=== PATIENT | male | born 1935 | race Caucasian/White ===

== ENCOUNTER → 2017-09-28 14:02 | Outpatient (CLI) | payer SELFPAY, OTHER ==
--- NOTE | 2017-09-28 14:07 | ECHOD_ITS ---
Reason For Study: AFIB/FLUTTER Procedure This was a 2D Doppler, Color Flow transthoracic echocardiogram. Contrast injection was performed. Exam performed in department. Left Ventricle Moderately dilated left ventricle. The estimated ejection fraction is 25 %. Unable to assess diastolic dysfunction due to arrhythmia. There is severe global hypokinesis of the left ventricle. Right Ventricle Normal RV size. Normal systolic function. Atria The left atrium is severely enlarged. The right atrium is moderately enlarged. Patent foramen ovale. Mitral Valve Normal mitral valve. Mild-Moderate (1-2+) eccentric mitral valve insufficiency. Tricuspid Valve Normal tricuspid valve. Mild to moderate (1-2+) tricuspid valve insufficiency. Pulmonary artery systolic pressure is 45 mmHg. Mild pulmonary hypertension. Aortic Valve Normal aortic valve. Trisinus/trileaflet aortic valve. Mild (1+) aortic valve insufficiency. Pulmonic Valve Normal pulmonic valve. Great Vessels Normal aortic root. The pulmonary artery is normal size. The inferior vena cava is dilated. Pericardium/Pleural No pericardial effusion. Medication 22 gauge I.V. with prn adaptor inserted into right arm. Diluted definity 4ml given slow IV push to enhance endocardial definition. MMode/2D Measurements & Calculations LVIDd: 6.0 cm IVSd: 1.1 cm Ao root diam: 3.2 cm LVIDs: 4.8 cm LVPWd: 1.1 cm LA dimension: 6.3 cm RVDd: 4.4 cm FS: 20.6 % LAV(MOD-bp): 163.2 ml LVAd ap4: 40.1 cm2 SV(MOD-sp4): 39.1 ml LAV(MOD-bp) Indexed: 87.8 ml/m2 EDV(MOD-sp4): 162.4 ml LAV(MOD-sp2): 139.1 ml EDV(sp4-el): 167.9 ml LAV(MOD-sp4): 161.4 ml LVAs ap4: 33.6 cm2 ESV(MOD-sp4): 123.3 ml ESV(sp4-el): 128.8 ml EF(MOD-sp4): 24.1 % EF(sp4-el): 23.3 % SV(sp4-el): 39.1 ml LA A4 area: 40.8 cm2 RA A4 area: 31.6 cm2 Time Measurements MV dec time: 0.29 sec Doppler Measurements & Calculations MV E max ely: 68.8 cm/sec Ao V2 max: 109.2 cm/sec LV V1 max: 88.6 cm/sec Ao max P.8 mmHg LV V1 max P.1 mmHg Ao V2 mean: 78.0 cm/sec LV V1 mean P.8 mmHg Ao mean P.7 mmHg LV V1 mean: 64.4 cm/sec Ao V2 VTI: 20.6 cm LV V1 VTI: 16.5 cm PA V2 max: 88.2 cm/sec TR max ely: 315.9 cm/sec TR max P.0 mmHg Interpretation Summary Moderately dilated left ventricle. The estimated ejection fraction is 25 %. Unable to assess diastolic dysfunction due to arrhythmia. There is severe global hypokinesis of the left ventricle. Mild-Moderate (1-2+) eccentric mitral valve insufficiency. Mild pulmonary hypertension. Contrast injection was performed. Ordering Physician: Jalil Tamayo Referring Physician: MARIA DEL CARMEN WATTS Performed By: Helga Hedrick RVT and Student
== END ==
PROVIDERS: Family Provider Family Medicine; PCP Family Medicine; Visit Provider Internal Medicine Cardiovascular Disease
DX: I48.91 Unspecified atrial fibrillation (principal); I48.92 Unspecified atrial flutter; R06.09 Other forms of dyspnea
CPT/HCPCS: 93306; Q9957; A4216; C8929

== ENCOUNTER 2018-12-30 09:09 | Inpatient (IN) | payer OTHER, SELFPAY ==
[2018-11-30 09:13] VITALS: BMI 23.8
[2018-12-30] VITALS (24 sets, daily range): BP systolic 103–140; BP diastolic 54–107; PULSE 68–136; RESP 18–37; TEMP 36.5–37.3; O2SAT 90–99; BMI 25.1; BMI 24.3
--- NOTE | 2018-12-30 09:25 | EKG12_ITS ---
Test Reason : SOB Blood Pressure : / mmHG Vent. Rate : 131 BPM Atrial Rate : 092 BPM P-R Int : 000 ms QRS Dur : 086 ms QT Int : 324 ms P-R-T Axes : 000 -46 096 degrees QTc Int : 478 ms Atrial fibrillation with rapid ventricular response with premature ventricular or aberrantly conducte d complexes Left anterior fascicular block Nonspecific ST and T wave abnormality Abnormal ECG Confirmed by JOSEPH YUAN, DEMARCO ([id number]), photographic editor MICHAEL NICOLAS ([id number]) on 01/02/2019 8:37:32 AM Referred By: EMMA/JOCELYN Confirmed By:DEMARCO RUIZ MD
--- NOTE | 2018-12-30 09:27 | ED.VISSUMM ---
- ER Visit Summary Date of Service: 12/30/18 Chief Complaint: Shortness of breath and irregular fast heart rate History of Present Illness: The patient is a 83 M A. fib and a decreased ejection fraction of 25%. He has been cardioverted before in the past. Currently he is on a beta-pau for his A. fib but is not on anticoagulation. The last 2 days he thinks his heart beat was accelerated and irregular again believes he may be back in A. fib. Planing of exertional shortness of breath. No chest pain or exertional chest pain. No fever or chills. No leg swelling. No calf pain. No hemoptysis. Physical Examination: Older male vital signs show a heart rate of 136 and irregular consistent with A. fib on the monitor blood pressure 108/89 and a pulse ox of 90% consistent with borderline hypoxia. H EENT exam unremarkable. Neck nontender no JVD no lymphadenopathy. Lungs clear to auscultation bilaterally. Heart irregular irregular rate about 130 consistent with A. fib. Abdomen is soft and nontender normal bowel sounds no peritoneal signs. Patient moving all 4 extremities. Neurovascularly intact. Calves are nontender without edema or cords. Neurologically is awake and alert with no focal motor deficits. Back is unremarkable. Test Results: CBC shows a white count 11.5. Hemoglobin 12. Platelets are 145,000. Chemistries unremarkable creatinine of 1 normal gap. PT/INR normal. He is on no blood thinners at this time. Troponin normal. EKG atrial fibrillation with RVR with a rate of 131. Chest x-ray shows cardiomegaly and mild congestive heart failure read both by myself and the radiologist. This is a portable one view film. Emergency Department Course and Treatment: Elderly male with A. fib RVR with shortness of breath. Will be treated with IV Cardizem. Most likely will need to be admitted Treatment Plan: Repeat exam at 10:05 AM patient is well. Currently his heart rate is about 70. He remains in A. fib which is currently well controlled after single dose of IV Cardizem. Discussed with both he and his family and he will be admitted. Disposition: Admission Impression: Recurrent A. fib with RVR Mild CHF secondary to A. fib RVR and poor ejection fraction History of cardiomyopathy with poor ejection fraction This note was generated with [employer] software. It may contain incorrect words, spelling, and punctuation that were not noted in review of the chart prior to signing ED Disposition - Plan for ED Patient: Referrals: oJse Gomes DO [Primary Care Provider] -
--- NOTE | 2018-12-30 09:30 | RAD_ITS ---
STUDY: X-RAY CHEST REASON FOR EXAM: Male, 83 years old. Chest pain and shortness of breath TECHNIQUE: Single AP portable view of the chest. COMPARISON: None. FINDINGS: There is elevation of the right hemidiaphragm. There is a pattern of increased interstitial markings mild central peribronchial thickening. There is no demonstrated pleural abnormality. There is moderate cardiac enlargement. Normal mediastinum and mago. Normal visualized pulmonary arteries. There is atherosclerotic calcification of the aortic arch with tortuosity. There are diffuse degenerative changes of the visualized thoracic spine. Normal visualized ribs, clavicles, and shoulders. There is no demonstrated abnormality of the visualized soft tissue structures of the upper abdomen. RAD/Chest 1 View (Portable) IMPRESSION: Cardiomegaly. Findings suspicious for mild central vascular congestion . Electronically Signed: Tammy Berry MD at 9:40 EDT Tel , Service support ,
[2018-12-30 09:31] LABS: Absolute Lymphocyte Count 0.98 X10^3/uL (0.83-4.51); Absolute Neutrophil Count 8.5 X10^3/uL (2.0-7.7); Basophil# 0.08 X10^3/uL; Basophil% 0.7 % (0-1); Eosinophil# 0.64 X10^3/uL; Eosinophils% 5.6 % (0-5); Hematocrit 37.5 % (40-54); Lymphocyte # 0.98 X10^3/ul (4.0); Lymphocyte % 8.5 % (19-41); Mean Corpuscular Hgb 31.7 pg (27.0-32.0); Mean Corpuscular Volume 99.2 fL (80-94); Mean Platelet Vol. 10.5 fl (6.2-12.0); Monocyte# 1.26 X10^3/uL; Monocyte% 10.9 % (0-10); NRBC Flagged by Analyzer 0 % (0-5); Neutrophil # 8.52 X10^3/uL (2.7-7.7); Neutrophil % 73.9 % (47-70); POSITIVE MORPHOLOGY YES; Platelet Count 145 K/mm3 (150-450); RBC Distribution Width CV 20.8 % (11.6-14.6); RBC Distribution Width SD 74.5 fl (35.1-43.9); Red Blood Count 3.78 M/mm3 (4.6-6.2); White Blood Count 11.5 K/mm3 (4.4-11.0)
[2018-12-30 09:32] LABS: Differential Indicated SCAN CRITERIA MET
[2018-12-30] MEDS: dilTIAZem 25 MG/5 ML Vial IV BOLUS (09:40)
[2018-12-30 09:43] LABS: International Normalized Ratio 1.1; Prothrombin Time (Protime)PT. 14.2 SECONDS (11.7-14.9)
[2018-12-30 09:49] LABS: Anion Gap 4 (5-15); BUN 28 mg/dL (7-18); BUN/Creat Ratio 27.2 RATIO (10-20); Calcium,Total 9.1 mg/dL (8.5-10.1); Chloride 106 mmol/L (98-107); Creatinine, Serum 1.03 mg/dL (0.70-1.30); EST Glomerular Filtration Rate 73 mL/min (>60); Est Glom Filt Rate - Afr Amer 89 mL/min (>60); Estimated Creatinine Clearance 52.57 ml/min; Glucose 102 mg/dL (74-106); Potassium 4.8 mmol/L (3.5-5.1); Sodium Level 139 mmol/L (136-145)
[2018-12-30 09:52] LABS: Anisocytosis 2+; Differential Comment SCANNED; Macrocytosis 1+; Microcytosis 1+
--- NOTE | 2018-12-30 10:09 | HP.PCM_ITS ---
History of Present Illness Date of Admission: 12/30/18 Chief Complaint: shortness of breath The patient is a 83 year old M with a past medical history as listed in which includes atrial fibrillation. He was admitted through the ED on 12/30/2018 with a complaint of shortness of breath. Shortness of breath started a few days prior to admission and was associated with orthopnea and PND. He denied any palpitations or lightheadedness but admitted to some dizziness. He denied any chest pain and denied any swelling in his lower extremities and had no assisted fever chills or cough. Review of systems is otherwise negative. Symptoms persisted so he decided to come to the ED today. On arrival in the ED ED, EKG showed heart rate of 136 and Afib, and blood pressure was 108/89 and pulse rate was 90% on room air. [] CBC showed hemoglobin of 12 white cell count of 11.5. Chemistry was unremarkable and initial troponin was negative. Chest x-ray showed cardiomegaly with findings suspicious for mild central vascular congestion. BNP was not checked. Patient is been admitted to be managed for A. fib with RVR. Past Medical History Past Medical History (Chronic Problems): Chronic Problems (Last Reviewed 11/30/18 @ 10:20 by Jalil Tamayo MD) Dyspnea (Chronic) Persistent atrial fibrillation (Chronic) Non-ischemic cardiomyopathy (Chronic) Secondary pulmonary arterial hypertension (Chronic) Nonrheumatic mitral (valve) insufficiency (Chronic) Medical History: Medical History (Last Reviewed 11/30/18 @ 10:20 by Jalil Tamayo MD) Persistent atrial fibrillation (Chronic) I48.1 Non-ischemic cardiomyopathy (Chronic) I42.8 GI bleed Onset Date: ~2015 K92.2 Osteoarthritis M19.90 Allergies sacubitril [From Entresto] Allergy (Verified 12/30/18 09:10) Itching valsartan [From Entresto] Allergy (Verified 12/30/18 09:10) Itching Home Medications: Ambulatory Orders Medication Instructions Recorded Aspirin 325 mg PO DAILY@0800 12/30/18 Carvedilol [Coreg] 6.25 mg PO BID 12/30/18 Ferrous Sulfate 325 mg PO DAILY 12/30/18 Furosemide [Lasix] 40 mg PO DAILY 12/30/18 Sertraline HCl [Zoloft] 50 mg PO DAILY 12/30/18 Surgical History: Surgical History (Last Reviewed 11/30/18 @ 10:20 by Jalil Tamayo MD) History of basal cell carcinoma excision Z98.890, Z85.828 History of cardioversion Z98.890 History of knee replacement Z96.659 History of right and left heart catheterization Onset Date: 09/08/15 Z98.890 Lives: With Family Smoking Status: Never smoker Alcohol: None Drugs: None - *Family History Maternal History Items: No pertinent history Paternal History Items: No pertinent history Review of Systems Constitutional: Reports: Anorexia. Denies: Malaise, Weakness Eyes: Denies: Blurred vision HEENT: Denies: Head Aches, Sinus Congestion, Sinus Drainage Cardiovascular: Reports: Orthopnea, Paroxysmal Noc. Dyspnea. Denies: Chest Pain, Chest Pressure, Chest Tightness, Edema, Heaviness, Light Headedness, Palpitations, Syncope Respiratory: Reports: Shortness of Breath, Shortness of breath at rest. Denies: Cough, Shortness of breath upon exertion, Sputum production, Wheezing Gastrointestinal: Denies: Abdominal Pain, Nausea, Vomiting Genitourinary: Denies: Dysuria Musculoskeletal: Denies: Joint Pain, Joint Tenderness Skin: Denies: Rash, Wounds Neurological: Denies: Numbness, Tingling, Focal weakness Psychiatric: Denies: Anxiety, Depression, Homicidal Ideations, Suicidal Ideations Hematologic/ Lymphatic: Denies: Easy Bruising, Easy Bleeding VTE Information - Inpt Only VTE Present on Admission: No VTE Pharm Prophylaxis ordered?: Yes - Physical Exam General: Alert, Oriented x3, Cooperative, No apparent distress HEENT: Atraumatic, PERRLA, EOMI, Normocephalic Oral: Dry Mucosa Neck: Supple, No JVD, Negative Carotid Bruits Lungs: - - decreased breath sounds bibasally, no wheezes; bibasilar crackles. on 2L fo oxygen Cardiovascular: Normal S1, Normal S2, Irregular Rate - and irregular rhythm, Murmur - grade 2-3 systolic murmur loudest at mitral valve area, - Abdomen: Bowel Sounds Present, Soft, Non Tender Extremities: No clubbing, No cyanosis, No edema, Capillary Refill Less than 3 Seconds Skin: No rashes, No breakdown Musculoskeletal: No Tenderness to Palpation of Joints or Extremities Lymphatic: No Cervical, Supraclavicular, or Inguinal Adenopathy Neurological: Cranial nerves II-XII grossly intact, Neuro grossly intact, Motor Exam 5/5 strength throughout Psych/Mental Status: Normal Affect, Appropriate, Alert and oriented to time, place, person, mood and affect Vital Signs Temp Pulse Resp BP Pulse Ox 98.2 F 136 H 20 H 108/89 H 96 12/30/18 09:11 12/30/18 09:11 12/30/18 09:11 12/30/18 09:11 12/30/18 09:27 Oxygen Flow Rate (L/min) 2 Oxygen Delivery Method Nasal Cannula Weight: 165 lb 5.547 oz Body Mass Index (BMI) 25.1 Laboratory Tests Past 24 Hrs 12/30/18 12/30/18 12/30/18 09:21 09:21 09:21 WBC 11.5 H RBC 3.78 L Hgb 12.0 L Hct 37.5 L MCV 99.2 H MCH 31.7 MCHC 32.0 RDW Std Deviation 74.5 H RDW Coeff of Jack 20.8 H Plt Count 145 L MPV 10.5 Immature Gran % (Auto) 0.400 Neut % (Auto) 73.9 H Lymph % (Auto) 8.5 L [place] % (Auto) 10.9 H Eos % (Auto) 5.6 H Baso % (Auto) 0.7 Absolute Neuts (auto) 8.5 H Absolute Lymphs (auto) 0.98 Nucleated RBC % 0 Differential Comment SCANNED Anisocytosis 2+ Microcytosis 1+ Macrocytosis 1+ PT 14.2 INR 1.1 Sodium 139 Potassium 4.8 Chloride 106 Carbon Dioxide 29.0 Anion Gap 4 L BUN 28 H Creatinine 1.03 Estim Creat Clear Calc 52.57 Est GFR (MDRD) Af Amer 89 Est GFR (MDRD) Non-Af 73 BUN/Creatinine Ratio 27.2 H Glucose 102 Calcium 9.1 Troponin I < 0.015 Diagnostic Data Chest X-Ray 12/30/18 09:30 IMPRESSION: Cardiomegaly. Findings suspicious for mild central vascular congestion . Electronically Signed: Tammy Berry MD at 9:40 EDT Tel , Service support , Assessment/Plan All Active Problems (Last Reviewed 11/30/18 @ 10:20 by Jalil Tamayo MD) Dyspnea on exertion (Resolved) 83-year-old male admitted with complaint of shortness of breath. 1. Afib with RVR * admit to PCU with telemetry * EKG showed Afib with RVR with HR in 130s * initial troponin is negative; will cycle * received a bolus of cardizem in the ED, adn HR is now down in the 80s. * CHADVASC score is ~ 2, therefore he needs anticoagulation * patient on aspirin; from cardiology visit note, pateint refused coumadin. Hospitalist discussed this with patient and his family. His son stated that they were not in favor of anticoagulants as the preferred natural ways of treating ailments such as fruits and vegetables. Hospitalist informed son and family that patient was already on a lot of medications and so this was counted to them preferring only natural medications. They thought he may have had a history of GI bleed but they were not sure. It is documented in previous history that patient does have a history of GI bleed. Family will think about starting anticoagulants and at hospitalist note. * For now, continue on aspirin and carvedilol. Consider adding Cardizem drip if heart rate remains poorly controlled. * consult cardiology * 2. Acute on chronic HFrEF * CXR showed evidence of pulmonary vascular congestion. * BNP is 974 * last 2D echo (: moderately dilated LV, with EF of 25%, nable to assess diastolic function. Severe global hypokinesia of LV. severely enlarged LA, and PA pressure of 45mmhg. mild to moderate mitral and tricuspid valve insufficiency * hold oral lasix and diurese with IV lasix 40mg bid. * fluid restriction to 1500cc daily; monitor intake and output * order 2D echo * 3.Chronic Anemia: . Hb is 12. On iron supplementation. Will monitor DVT prophylaxis: lovenox Code status: full code * Patient and family counseled extensively about different types of CODE STATUS including full code, DNR CCA and DNR CCA. Patient elects to be full code. Total [id number] time 16 minutes. Code Visit Inpatient E&M: 65543 Init Hosp L3 Procedures: 90503 Advncd Care Plan 30 Min
[2018-12-30] MEDS: 0.9% NaCl Peripheral Flush Adult/Peds IV (12:21)
[2018-12-30] MEDS: Furosemide 40 MG/4 ML Vial IV ×2 (12:21→17:26)
[2018-12-30 12:22] LABS: Magnesium 1.9 mg/dL (1.6-2.6)
--- NOTE | 2018-12-30 13:27 | NURSING ---
spoke with dr deshpande and no need for nutritional supplement d/c fluid restriction
--- NOTE | 2018-12-30 15:14 | NURSING ---
This RN taking over care at this time
--- NOTE | 2018-12-30 17:23 | PCM.CONS.C ---
Problem List (1) Persistent atrial fibrillation Status: Chronic Reason for Consult Date of Consultation: 12/30/18 History of Present Illness: The patient is a 83 year old M with a past medical history as listed in which includes atrial fibrillation. He was admitted through the ED on 12/30/2018 with a complaint of shortness of breath. Shortness of breath started a few days prior to admission and was associated with orthopnea and PND. He denied any palpitations or lightheadedness but admitted to some dizziness. He denied any chest pain and denied any swelling in his lower extremities and had no assisted fever chills or cough. Review of systems is otherwise negative. Symptoms persisted so he decided to come to the ED today. On arrival in the ED ED, EKG showed heart rate of 136 and Afib, and blood pressure was 108/89 and pulse rate was 90% on room air. [] CBC showed hemoglobin of 12 white cell count of 11.5. Chemistry was unremarkable and initial troponin was negative. Chest x-ray showed cardiomegaly with findings suspicious for mild central vascular congestion. BNP was not checked. Patient is been admitted to be managed for A. fib with RVR. She was started on a Cardizem drip and this has controlled his heart rate. He does have history of severe LV dysfunction. Patient had refused Coumadin in the past. Review of systems: All systems reviewed. All else is negative except in the HPI. [] Past Medical History Allergies/Adverse Reactions: Allergies sacubitril [From Entresto] Allergy (Verified 12/30/18 09:10) Itching valsartan [From Entresto] Allergy (Verified 12/30/18 09:10) Itching Home Medications: Ambulatory Orders Medication Instructions Recorded Aspirin 325 mg PO DAILY@0800 12/30/18 Carvedilol [Coreg] 6.25 mg PO BID 12/30/18 Ferrous Sulfate 325 mg PO DAILY 12/30/18 Furosemide [Lasix] 40 mg PO DAILY 12/30/18 Sertraline HCl [Zoloft] 50 mg PO DAILY 12/30/18 Past Medical History (Chronic Problems): Chronic Problems (Last Reviewed 11/30/18 @ 10:20 by Jalil Tamayo MD) Dyspnea (Chronic) Persistent atrial fibrillation (Chronic) Non-ischemic cardiomyopathy (Chronic) Secondary pulmonary arterial hypertension (Chronic) Nonrheumatic mitral (valve) insufficiency (Chronic) - *Family History Maternal History Items: No pertinent history Paternal History Items: No pertinent history Lives: With Family Smoking Status: Never smoker Alcohol: None Drugs: None Objective: Vital Signs Temp Pulse Resp BP Pulse Ox 97.8 F 87 29 H 105/77 95 12/30/18 14:00 12/30/18 16:00 12/30/18 16:00 12/30/18 16:00 12/30/18 16:00 Oxygen Flow Rate (L/min) 2 Oxygen Delivery Method Nasal Cannula Weight: 159 lb 13.362 oz Body Mass Index (BMI) 24.3 Intake and Output for Last 24 Hours 12/28/18 12/29/18 12/30/18 23:59 23:59 23:59 Intake Total 231.00 / 231.00 Balance 231.00 / 231.00 General: Awake, Alert, Oriented x 3 Oral: Moist Mucosa Neck: Supple Lungs: Clear to auscultation Cardiovascular: Irregular Rhythm Abdomen: Soft Extremities: No edema Skin: No Rashes Psych/Mental Status: Appropriate 12/30/18 09:21: WBC 11.5 H, RBC 3.78 L, Hgb 12.0 L, Hct 37.5 L, MCV 99.2 H, MCH 31.7, MCHC 32.0, Plt Count 145 L, MPV 10.5, Immature Gran % (Auto) 0.400, Neut % (Auto) 73.9 H, Lymph % (Auto) 8.5 L, [place] % (Auto) 10.9 H, Eos % (Auto) 5.6 H, Baso % (Auto) 0.7, Absolute Neuts (auto) 8.5 H, Nucleated RBC % 0 12/30/18 09:21: Sodium 139, Potassium 4.8, Chloride 106, Carbon Dioxide 29.0, Anion Gap 4 L, BUN 28 H, Creatinine 1.03, Est GFR (MDRD) Af Amer 89, Est GFR (MDRD) Non-Af 73, BUN/Creatinine Ratio 27.2 H, Glucose 102, Calcium 9.1, Troponin I < 0.015 12/30/18 09:21: PT 14.2, INR 1.1 12/30/18 09:21: Magnesium 1.9 12/30/18 09:21: B-Natriuretic Peptide 974.0 H 12/30/18 13:00: Troponin I < 0.015 12/30/18 15:20: Troponin I < 0.015 Rhythm: EKG: ECHO: Stress Test: Cardiac Cath: PCI: CT Surgery: Holter monitor: EPS: PPM: CXR: Chest CT Scan: Assessment/Plan 1. Atrial fibrillation: I will switch from carvedilol to Toprol to see if this will control his heart rate better and we will try to wean off the Cardizem. Once we know the dose of Toprol he will be needing on a daily basis then we can switch to Toprol-XL. 2. LV dysfunction: Patient has history of an EF of 25% in September 2017. It will be reasonable to repeat an echo.
[2018-12-30] MEDS: Metoprolol Tartrate 50 MG Tablet PO (21:42)
[2018-12-31] VITALS (22 sets, daily range): BP systolic 96–126; BP diastolic 54–99; PULSE 68–92; RESP 16–26; TEMP 36.3–37.1; O2SAT 94–98
--- NOTE | 2018-12-31 05:55 | ECHOD_ITS ---
Reason For Study: AFIB/FLUTTER Procedure This was a 2D Doppler, Color Flow transthoracic echocardiogram. Exam performed portable in patient room. Left Ventricle Normal LV size. The estimated ejection fraction is 50 %. Diastolic function is indeterminate. No regional wall motion abnormalities noted. Right Ventricle Mildly dilated right ventricle. Normal systolic function. Atria The left atrium is severely enlarged. The right atrium is severely enlarged. No doppler evidence for ASD. Mitral Valve There is no mitral valve stenosis. Mild-Moderate (1-2+) mitral valve insufficiency. Tricuspid Valve There is no tricuspid stenosis. Mild to moderate (1-2+) tricuspid valve insufficiency. Pulmonary artery systolic pressure is 80 mmHg. Severe pulmonary hypertension. Aortic Valve Trisinus/trileaflet aortic valve. There is no aortic stenosis. No aortic valve insufficiency. Pulmonic Valve There is no pulmonic valvular stenosis. No pulmonic valve insufficiency. Great Vessels Normal aortic root. The inferior vena cava is dilated. Pericardium/Pleural No pericardial effusion. MMode/2D Measurements & Calculations LVIDd: 5.1 cm IVSd: 1.1 cm Ao root diam: 3.2 cm LVIDs: 3.6 cm LVPWd: 1.1 cm RVDd: 5.1 cm FS: 29.1 % LAV(MOD-bp): 156.9 ml LA A4 area: 40.9 cm2 LA dimension(2D): 4.6 cm LAV(MOD-bp) Indexed: 85.8 ml/m2 LAV(MOD-sp2): 143.9 ml LAV(MOD-sp4): 167.7 ml RA A4 area: 38.3 cm2 Doppler Measurements & Calculations MV E max ely: 109.3 cm/sec Ao V2 max: 122.5 cm/sec LV V1 max: 67.7 cm/sec Ao max P.0 mmHg LV V1 max P.8 mmHg PA V2 max: 86.1 cm/sec TR max ely: 412.9 cm/sec TR max P.2 mmHg Interpretation Summary The estimated ejection fraction is 50 %. Diastolic function is indeterminate. Mild-Moderate (1-2+) mitral valve insufficiency. Mild to moderate (1-2+) tricuspid valve insufficiency. Pulmonary artery systolic pressure is 80 mmHg. Severe pulmonary hypertension. The inferior vena cava is dilated Ordering Physician: Josefa Arrieta Referring Physician: Jose Gomes Performed By: Tanvi Willis, LIBRADO, RVT
[2018-12-31 06:16] LABS: Absolute Lymphocyte Count 1.09 X10^3/uL (0.83-4.51); Absolute Neutrophil Count 7.5 X10^3/uL (2.0-7.7); Basophil# 0.04 X10^3/uL; Basophil% 0.4 % (0-1); Eosinophil# 0.57 X10^3/uL; Eosinophils% 5.5 % (0-5); Hematocrit 35.6 % (40-54); Hemoglobin 11.7 g/dL (13.0-16.5); Lymphocyte # 1.09 X10^3/ul (4.0); Lymphocyte % 10.5 % (19-41); Mean Corp Hgb Conc 32.9 g/dL (32-36); Mean Corpuscular Hgb 32.1 pg (27.0-32.0); Mean Corpuscular Volume 97.5 fL (80-94); Mean Platelet Vol. 10.1 fl (6.2-12.0); Monocyte# 1.15 X10^3/uL; Monocyte% 11.1 % (0-10); NRBC Flagged by Analyzer 0 % (0-5); Neutrophil # 7.49 X10^3/uL (2.7-7.7); Neutrophil % 71.9 % (47-70); POSITIVE MORPHOLOGY YES; Platelet Count 141 K/mm3 (150-450); RBC Distribution Width CV 20.4 % (11.6-14.6); RBC Distribution Width SD 72.5 fl (35.1-43.9); Red Blood Count 3.65 M/mm3 (4.6-6.2); White Blood Count 10.4 K/mm3 (4.4-11.0)
[2018-12-31] MEDS: 0.9% NaCl Peripheral Flush Adult/Peds IV ×3 (06:36→17:19)
[2018-12-31 06:42] LABS: Anion Gap 4 (5-15); BUN 30 mg/dL (7-18); BUN/Creat Ratio 26.8 RATIO (10-20); Calcium,Total 8.7 mg/dL (8.5-10.1); Chloride 102 mmol/L (98-107); Creatinine, Serum 1.12 mg/dL (0.70-1.30); EST Glomerular Filtration Rate 67 mL/min (>60); Est Glom Filt Rate - Afr Amer 80 mL/min (>60); Estimated Creatinine Clearance 48.35 ml/min; Glucose 93 mg/dL (74-106); Potassium 4.5 mmol/L (3.5-5.1); Sodium Level 139 mmol/L (136-145)
[2018-12-31 06:44] LABS: Differential Indicated SCAN CRITERIA MET
[2018-12-31 06:48] LABS: Anisocytosis 3+; Differential Comment SCANNED
--- NOTE | 2018-12-31 08:06 | PN_ITS ---
Subjective: Chief complaint: Follow-up after admission for A. hebert with RVR and acute on chronic diastolic CHF. Patient seen and examined. No acute events overnight. Patient reports that he is feeling better, shortness of breath improved. He is ambulating to the bathroom without significant worsening of his shortness of breath. Denied chest pain, palpitation, syncope or presyncope. He did mention that he gets slightly dizzy when he stands up. He remained on IV Cardizem drip. Heart rate is controlled, down to 70s, blood pressure stable, pulse ox is 95% on 2 L. - Physical Exam General: Alert, Oriented x3, Cooperative, No apparent distress HEENT: Atraumatic, PERRLA, EOMI, Normocephalic Oral: Moist Mucosa, No Gingival or Mucosal Lesions/ Ulcerations Neck: Supple, No JVD, Negative Carotid Bruits, Trachea Midline, Thyroid Normal Size and Texture Lungs: Clear to auscultation, No wheeze, No rales, Diminished, Rhonchi Cardiovascular: Normal S1, Normal S2, No murmurs, Irregular Rate Abdomen: Bowel Sounds Present, Soft, Non Tender, Non-Distended, No Hepato- splenomegaly Extremities: No clubbing, No cyanosis, No edema Skin: No rashes, No breakdown Lymphatic: No Cervical, Supraclavicular, or Inguinal Adenopathy Neurological: Cranial nerves II-XII grossly intact, Motor Exam 5/5 strength throughout Psych/Mental Status: Normal Affect, Appropriate, Alert and oriented to time, place, person, mood and affect Vital Signs Temp Pulse Resp BP Pulse Ox 98.4 F 70 20 H 106/66 95 12/31/18 04:00 12/31/18 07:08 12/31/18 06:00 12/31/18 06:00 12/31/18 06:00 Oxygen Flow Rate (L/min) 2 Oxygen Delivery Method Nasal Cannula Weight: 154 lb 12.232 oz Body Mass Index (BMI) 24.3 Intake and Output for Last 24 Hours 12/29/18 12/30/18 12/31/18 23:59 23:59 23:59 Intake Total 866.00 / 1111.00 257.5 / 257.5 Output Total 1150 / 2850 1700 / 1700 Balance -284.00 / -1739.00 -1442.5 / -1442.5 Laboratory Tests Past 24 Hrs 10/13/19 10/13/19 10/13/19 09:21 09:21 09:21 WBC 11.5 H RBC 3.78 L Hgb 12.0 L Hct 37.5 L MCV 99.2 H MCH 31.7 MCHC 32.0 RDW Std Deviation 74.5 H RDW Coeff of Jack 20.8 H Plt Count 145 L MPV 10.5 Immature Gran % (Auto) 0.400 Neut % (Auto) 73.9 H Lymph % (Auto) 8.5 L Mcintosh % (Auto) 10.9 H Eos % (Auto) 5.6 H Baso % (Auto) 0.7 Absolute Neuts (auto) 8.5 H Absolute Lymphs (auto) 0.98 Nucleated RBC % 0 Differential Comment SCANNED Anisocytosis 2+ Microcytosis 1+ Macrocytosis 1+ PT 14.2 INR 1.1 Sodium 139 Potassium 4.8 Chloride 106 Carbon Dioxide 29.0 Anion Gap 4 L BUN 28 H Creatinine 1.03 Estim Creat Clear Calc 52.57 Est GFR (MDRD) Af Amer 89 Est GFR (MDRD) Non-Af 73 BUN/Creatinine Ratio 27.2 H Glucose 102 Calcium 9.1 Magnesium Troponin I < 0.015 B-Natriuretic Peptide 12/30/18 12/30/18 12/30/18 09:21 09:21 13:00 WBC RBC Hgb Hct MCV MCH MCHC RDW Std Deviation RDW Coeff of Jack Plt Count MPV Immature Gran % (Auto) Neut % (Auto) Lymph % (Auto) Mcintosh % (Auto) Eos % (Auto) Baso % (Auto) Absolute Neuts (auto) Absolute Lymphs (auto) Nucleated RBC % Differential Comment Anisocytosis Microcytosis Macrocytosis PT INR Sodium Potassium Chloride Carbon Dioxide Anion Gap BUN Creatinine Estim Creat Clear Calc Est GFR (MDRD) Af Amer Est GFR (MDRD) Non-Af BUN/Creatinine Ratio Glucose Calcium Magnesium 1.9 Troponin I < 0.015 B-Natriuretic Peptide 974.0 H 12/30/18 12/31/18 12/31/18 15:20 05:47 05:47 WBC 10.4 RBC 3.65 L Hgb 11.7 L Hct 35.6 L MCV 97.5 H MCH 32.1 H MCHC 32.9 RDW Std Deviation 72.5 H RDW Coeff of Jack 20.4 H Plt Count 141 L MPV 10.1 Immature Gran % (Auto) 0.600 Neut % (Auto) 71.9 H Lymph % (Auto) 10.5 L Mcintosh % (Auto) 11.1 H Eos % (Auto) 5.5 H Baso % (Auto) 0.4 Absolute Neuts (auto) 7.5 Absolute Lymphs (auto) 1.09 Nucleated RBC % 0 Differential Comment SCANNED Anisocytosis 3+ Microcytosis Macrocytosis PT INR Sodium 139 Potassium 4.5 Chloride 102 Carbon Dioxide 33.0 H Anion Gap 4 L BUN 30 H Creatinine 1.12 Estim Creat Clear Calc 48.35 Est GFR (MDRD) Af Amer 80 Est GFR (MDRD) Non-Af 67 BUN/Creatinine Ratio 26.8 H Glucose 93 Calcium 8.7 Magnesium Troponin I < 0.015 B-Natriuretic Peptide Medical Necessity - Tobacco Use Smoking Status: Never smoker Assessment/Plan This is an 83 years old male patient presented to the emergency room because of shortness of breath and irregular heart rate, found to have A. fib with RVR as well as acute on chronic diastolic CHF. #1 A. fib with RVR: On IV Cardizem drip as well as oral metoprolol. Heart rate is down to 70s to 80s, blood pressure stable. Patient symptoms improved. Patient is a candidate for anticoagulation but reportedly, patient's family is concerned to start anticoagulation because of history of GI bleed. Cardiology on the case. Serum electrolytes including potassium and magnesium are normal. Troponin was negative. Plan to continue same treatment, 2D echocardiogram today. #2 acute on chronic diastolic CHF: On IV Lasix, on metoprolol. Symptoms are improving, volume status is improving as well. Plan for 2D echocardiogram today as above. #3 chronic anemia: Stable, continue iron supplement. No evidence of active bleeding. #4 DVT prophylaxis: Subcu Lovenox. This note was generated with [employer] dictation software. It may contain incorrect words, spelling, and punctuation that were not noted in checking the note before signing. Code Visit Inpatient E&M: 86809 Subs Hosp L2
[2018-12-31] MEDS: Aspirin 325 MG Tablet PO (10:14)
[2018-12-31] MEDS: Metoprolol Tartrate 50 MG Tablet PO ×2 (10:14→21:07)
[2018-12-31] MEDS: Sertraline 50 MG Tablet PO (10:15)
[2018-12-31] MEDS: Furosemide 40 MG/4 ML Vial IV ×2 (10:15→17:19)
[2018-12-31] MEDS: Ferrous Sulfate 325 MG Tablet PO (10:15)
--- NOTE | 2018-12-31 11:02 | CASEMGMT ---
This RN CM to room to complete CM assessment and ECHO is at bedside at this time. CM will attempt again later. SStaten RN CM
--- NOTE | 2018-12-31 12:45 | CASEMGMT ---
CONNIE SKAGGS assessment: Face to Face with patient for initial transition planning/care coordination assessment. CONNIE SKAGGS introduced self and role at [facility], pt voices understanding and consents to assessment at this time. Pt is lying in bed in no distress at this time. Pt is A/Ox4 at this time and answers all questions appropriately at this time. Pt with family member at bedside. Care providers, pharmacy, and demographics verified at this time. Per physician, pt/family do not want anti-coagulation d/t pt hx of GI bleeding. PCP: Eliseo Specialists: Roni, cardio Preferred Pharmacy: [facility] Insurance: [employer] Prescription Benefit: Self Living Will/HPOA: Pt is unsure if he has a LW/HPOA but states that he did complete paperwork with a public finance specialist and his (now ) years ago but unsure all that they did. LNOK: Mina Torres, son; Estelle Torres, son; Catalino Torres, son Living Arrangements: Pt states lives with son, Mina, and his family on main level of home and states no concerns at home at this time. Pt states is independent with ADL's. Transportation: Pt states no transportation concerns at this time. Pt states has a 3 wheel motorized bike that he rides the [employer] to [place] to get groceries. DME/HHC: Pt states has a cane but does not currently use. Pt states no need for any further DME at this time. Pt states no hx of HHC or SNF in the past. Pt states no concerns with going home at time of discharge. Pt states is retired. Pt states does not smoke or drink ETOH. Pt states no further concerns/needs at this time. CM to follow for any further discharge planning/needs. Advised pt to ask for CM if any further questions/concerns/needs arise, voices understanding. Pt Goal: Home Plan: Home SStaten CONNIE SKAGGS
--- NOTE | 2018-12-31 17:53 | PN.CARD_ITS ---
Subjectve: Patient denies any cardiac complaints. His heart rate is better controlled on current regimen. IV Cardizem was discontinued at around 2:30 AM this morning. Objective: Vital Signs Temp Pulse Resp BP Pulse Ox 98.7 F 77 16 115/74 95 12/31/18 14:51 12/31/18 16:14 12/31/18 14:51 12/31/18 14:51 12/31/18 14:51 Oxygen Flow Rate (L/min) 2 Oxygen Delivery Method Nasal Cannula Weight: 154 lb 12.232 oz Body Mass Index (BMI) 24.3 Intake and Output for Last 24 Hours 12/29/18 12/30/18 12/31/18 23:59 23:59 23:59 Intake Total 866.00 / 1111.00 987.5 / 987.5 Output Total 1150 / 2850 2200 / 2200 Balance -284.00 / -1739.00 -1212.5 / -1212.5 General: Awake, Alert, Oriented x 3 HEENT: Atraumatic Oral: Moist Mucosa Neck: Supple Lungs: Clear to auscultation Cardiovascular: Irregular Rhythm Abdomen: Soft Extremities: No edema 12/31/18 05:47: WBC 10.4, RBC 3.65 L, Hgb 11.7 L, Hct 35.6 L, MCV 97.5 H, MCH 32.1 H, MCHC 32.9, Plt Count 141 L, MPV 10.1, Immature Gran % (Auto) 0.600, Neut % (Auto) 71.9 H, Lymph % (Auto) 10.5 L, Sheridan % (Auto) 11.1 H, Eos % (Auto) 5.5 H , Baso % (Auto) 0.4, Absolute Neuts (auto) 7.5, Nucleated RBC % 0 12/31/18 05:47: Sodium 139, Potassium 4.5, Chloride 102, Carbon Dioxide 33.0 H, Anion Gap 4 L, BUN 30 H, Creatinine 1.12, Est GFR (MDRD) Af Amer 80, Est GFR (MDRD) Non-Af 67, BUN/Creatinine Ratio 26.8 H, Glucose 93, Calcium 8.7 Rhythm: EKG: ECHO: Stress Test: Cardiac Cath: PCI: CT Surgery: Holter monitor: EPS: PPM: CXR: Chest CT Scan: Medical Necessity - Tobacco Use Smoking Status: Never smoker Assessment/Plan 1. Atrial fibrillation: Metoprolol ended up controlling his heart rate better. Patient can be discharged home on Toprol-XL 100 mg p.o. daily. He can follow-up with Dr. Tamayo as an outpatient. He has refused Coumadin in the past. 2. LV dysfunction: Patient has history of an EF of 25% in September 2017. His current echo reveals an EF of around 50%.
[2019-01-01] VITALS (8 sets, daily range): BP systolic 119–122; BP diastolic 86–87; PULSE 84–91; RESP 16–20; TEMP 36.6–36.8; O2SAT 86–97
[2019-01-01 07:07] LABS: Anion Gap 4 (5-15); BUN 42 mg/dL (7-18); BUN/Creat Ratio 33.3 RATIO (10-20); Calcium,Total 8.9 mg/dL (8.5-10.1); Chloride 103 mmol/L (98-107); Creatinine, Serum 1.26 mg/dL (0.70-1.30); EST Glomerular Filtration Rate 58 mL/min (>60); Est Glom Filt Rate - Afr Amer 70 mL/min (>60); Estimated Creatinine Clearance 42.98 ml/min; Glucose 81 mg/dL (74-106); Potassium 3.9 mmol/L (3.5-5.1); Sodium Level 140 mmol/L (136-145)
[2019-01-01] MEDS: Metoprolol(XL)Succ 100 MG Tablet PO (08:38)
[2019-01-01] MEDS: Ferrous Sulfate 325 MG Tablet PO (08:38)
[2019-01-01] MEDS: Sertraline 50 MG Tablet PO (08:38)
[2019-01-01] MEDS: Aspirin 325 MG Tablet PO (08:38)
--- NOTE | 2019-01-01 10:02 | CASEMGMT ---
Addendum entered by Nannette Sena 01/01/19 11:18: Pt states no concerns with monthly delgado of home oxygen at this time and states that he has a checking account that they can use through [employer] as payment method. Pt/son voice no further questions/concerns/needs at this time. Anabell ROSALES CM Original Note: Per Isidoro RN, pt does qualify for home oxygen at this time. This RN CM to room to speak with pt regarding same. Pt is [place] and states does have a generator at home but it's only in the shop. Pt states no preference for DME company at this time after verbal list provided. Call to [employer] and they state they do not have liquid oxygen but they can send pt home with the large oxygen tanks and then refill as needed. Per Laura, pt's out of pocket cost per month would be $158.71. Anabell ROSALES CM
--- NOTE | 2019-01-01 10:43 | PCM.DC ---
You will use the following diet at home:: Cardiac, Fluid restricted (specify 2000 mls, 1500 mls) - 1500 cc daily. Your food should be the consistency of: Regular Discharge Activity: Return to Normal Activity Weight Bearing Status: Weight bearing as tolerated Call your doctor if you observe: Fever of 101 or Higher, Shortness of breath, Dizziness, Fainting spells, Chest pain, Increased palpitations (irregular heartbeat), Uncontrolled pain Instructions: Using Oxygen at Home Allergies/Adverse Reactions: Allergies sacubitril [From Entresto] Allergy (Verified 12/30/18 09:10) Itching valsartan [From Entresto] Allergy (Verified 12/30/18 09:10) Itching Medications to take at Discharge Aspirin 325 mg PO DAILY@0800 12/30/18 Ferrous Sulfate 325 mg PO DAILY 12/30/18 Furosemide [Lasix] 40 mg PO DAILY 12/30/18 Sertraline HCl [Zoloft] 50 mg PO DAILY 12/30/18 Metoprolol(XL)Succ [Toprol Xl (Beta Anibal)] 100 mg PO DAILY #30 tab 01/01/19 The following prescriptions were given: Metoprolol(XL)Succ [Toprol Xl (Beta Anibal)] 100 mg PO DAILY #30 tab Transmission Status: Pending to [facility]/pharmacy #[id number] Primary Care Physician: Jose Gomes DO [Primary Care Provider] - Please follow up with your Primary Care Physician in: 1 week. Test Results: Test results from this visit will be discussed in further detail at your follow-up appointment, if applicable. Please Follow Up With: Jose Gomes DO Please Follow Up With: Jalil Tamayo MD When: 2 weeks.
--- NOTE | 2019-01-01 12:11 | DS.PCM_ITS ---
Discharge Date and Diagnosis Date of Admission: 12/30/18 Date of Discharge: 01/01/19 - Primary Discharge Diagnosis #1 A. fib with RVR. #2 acute on chronic diastolic CHF. #3 acute hypoxic respiratory failure, requiring home oxygen. - Secondary Discharge Diagnosis Chronic Problems (Last Reviewed 11/30/18 @ 10:20 by Jalil Tamayo MD) Persistent atrial fibrillation (Chronic) Non-ischemic cardiomyopathy (Chronic) Secondary pulmonary arterial hypertension (Chronic) Nonrheumatic mitral (valve) insufficiency (Chronic) Hospital Course and Treatment Imaging Results: Clinical Impression(s) from Imaging Studies Chest X-Ray 12/30/18 09:30 IMPRESSION: Cardiomegaly. Findings suspicious for mild central vascular congestion . Electronically Signed: Tammy Berry MD at 9:40 EDT Tel , Service support , Dr. Oscar, cardiology. Operations: None Procedures: 2-D Echocardiogram, EKG Summary of Care Provided: Patient seen and examined on today's discharge and appeared to be stable to be discharged home. Heart rate remained under control, has been in the 80s, blood pressure stable. Patient denies any shortness of breath but walking pulse oximeter revealed pulse ox of 86% with ambulation on room air and patient did qualify for home oxygen. According to the patient, he used to use oxygen at home years ago. Other vital signs are stable. The patient is a 83 year old M presented to the emergency room because of shortness of breath and regular heartbeat and he was found to have A. fib with RVR in context of chronic atrial fibrillation as well as acute on chronic diastolic CHF. His EKG revealed no acute ischemic changes and his troponin was negative. His BNP was elevated. Chest x-ray showed findings consistent with CHF. Patient was treated with IV Cardizem drip for A. fib with RVR and with IV Lasix for diuresis for CHF. He was started on metoprolol for rate control. Patient was a candidate for anticoagulation but patient and his family refused to start anticoagulation at this time. Patient has a history of GI bleed reportedly. His heart rate dropped down to 80s and his blood pressure remained stable. Patient was started on Toprol-XL 100 mg p.o. twice daily after IV Cardizem discontinued. Cardiology consulted. 2D echocardiogram revealed ejection fraction 50%, mild to moderate MR and TR, pulmonary artery systolic pressure of 80 consistent with severe pulmonary hypertension. With IV diuresis, patient symptoms improved but he remained on 2 L of oxygen. With oral metoprolol, heart rate remained in the 80s. Ambulatory pulse oximeter performed and his pulse ox dropped down to 86% with ambulation on room air. Patient did mention that he used oxygen at home long time ago. Patient discharged home in a stable medical condition, discharged on metoprolol XL 100 mg p.o. daily, no anticoagulation given because patient and his family refused, patient did qualify for home oxygen and he was sent home on home oxygen at 2 L, started back on Lasix and aspirin, recommended follow-up with PCP in 1 week and follow-up with cardiology in 2 weeks. - Physical Exam General: Alert, Oriented x3, Cooperative, No apparent distress HEENT: Atraumatic, PERRLA, EOMI, Normocephalic Oral: Moist Mucosa, No Gingival or Mucosal Lesions/ Ulcerations Neck: Supple, No JVD, Negative Carotid Bruits, Trachea Midline, Thyroid Normal Size and Texture Lungs: Clear to auscultation, No rhonchi, No wheeze, No rales, Diminished Cardiovascular: Normal S1, Normal S2, PMI Normal, Irregular Rate Abdomen: Bowel Sounds Present, Soft, Non Tender, Non-Distended, No Hepato- splenomegaly Extremities: No clubbing, No cyanosis, No edema Skin: No rashes, No breakdown Lymphatic: No Cervical, Supraclavicular, or Inguinal Adenopathy Neurological: Cranial nerves II-XII grossly intact, Neuro grossly intact Psych/Mental Status: Normal Affect, Appropriate Vital Signs Temp Pulse Resp BP Pulse Ox 97.8 F 88 16 119/87 H 92 01/01/19 08:11 01/01/19 08:38 01/01/19 08:11 01/01/19 08:11 01/01/19 08:34 Oxygen Flow Rate (L/min) [ 2 AMBULATION with Oxygen] Oxygen Flow Rate (L/min) 2 Oxygen Delivery Method Room Air Weight: 154 lb 12.232 oz Body Mass Index (BMI) 24.3 Intake and Output for Last 24 Hours 10/13/19 10/14/19 10/15/19 23:59 23:59 23:59 Intake Total 866.00 / 1111.00 1087.5 / 1087.5 Output Total 1150 / 2850 2625 / 2625 Balance -284.00 / -1739.00 -1537.5 / -1537.5 Laboratory Tests Past 24 Hrs 01/01/19 06:05 Sodium 140 Potassium 3.9 Chloride 103 Carbon Dioxide 33.0 H Anion Gap 4 L BUN 42 H Creatinine 1.26 Estim Creat Clear Calc 42.98 Est GFR (MDRD) Af Amer 70 Est GFR (MDRD) Non-Af 58 L BUN/Creatinine Ratio 33.3 H Glucose 81 Calcium 8.9 Discharge Activity: Return to Normal Activity Weight Bearing Status: Weight bearing as tolerated Call your doctor if you observe: Fever of 101 or Higher, Shortness of breath, Dizziness, Fainting spells, Chest pain, Increased palpitations (irregular heartbeat), Uncontrolled pain Home Medications: Medications to take at Discharge Aspirin 325 mg PO DAILY@0800 12/30/18 Ferrous Sulfate 325 mg PO DAILY 12/30/18 Furosemide [Lasix] 40 mg PO DAILY 12/30/18 Sertraline HCl [Zoloft] 50 mg PO DAILY 12/30/18 Metoprolol(XL)Succ [Toprol Xl (Beta Anibal)] 100 mg PO DAILY #30 tab 01/01/19 Following Prescrptions Were Given to Patient: Metoprolol(XL)Succ [Toprol Xl (Beta Anibal)] 100 mg PO DAILY #30 tab Transmission Status: Received by [facility]/pharmacy #[id number] Primary Care Physician: Jose Gomes DO [Primary Care Provider] - Please follow up with your Primary Care Physician in: 1 week. Please Follow Up With: Jose Gomes DO Please Follow Up With: Jalil Tamayo MD When: 2 weeks. Patient Instructions: Using Oxygen at Home Disposition: Home Minutes spent on discharge:: 33 Patient Condition:: Stable Medical Necessity - Tobacco Use Smoking Status: Never smoker Meaningful Use Info Meaningful Use Diagnoses (Choose all that apply): CHF - CHF VAIBHAV/ARB ordered at discharge?: No Reason VAIBHAV/ARB not ordered?: Drug Interaction - Treatment not indicated. Documented LVEF (%): 50 Code Visit Inpatient E&M: 73995 Disch Hosp
--- NOTE | 2019-01-02 15:14 | CASEMGMT ---
CONNIE SKAGGS Discharge Follow-Up Phone Call. Lacanel: 9 Strata: 3 Discharge Date: 01/01/19 Adm Dx: A-Fib/RVR Call to pt to inquire about how he has been doing since being discharged from the hospital. Pt stated, I'm doing great. Really good. Pt states the oxygen was delivered and stated, It feels great. Pt states he was able to pick remover the new prescription and denies having any questions about the discharge instructions or medications. Reviewed follow-up appt w/Jose Gomes and discussed importance with pt that he needs to make an appt with Dr Tamayo in 2 weeks. Pt voices understanding. CONNIE SKAGGS thanked pt for choosing [facility]. Pt stated, I just love that hospital. Everyone is so kind. Makayla ANGELO RN, CM
== END 2019-01-01 14:25 | disposition home or self-care (01) | DRG 308 ==
LOC: ED 10:00 → PCU 10:28
PROVIDERS: Admitting Provider Student in an Organized Health Care Education/Training Program; Emergency Provider Emergency Medicine; Family Provider Family Medicine; PCP Family Medicine; Visit Provider Hospitalist
DX: I48.19 Other persistent atrial fibrillation (principal); I50.33 Acute on chronic diastolic (congestive) heart failure; J96.01 Acute respiratory failure with hypoxia; I42.8 Other cardiomyopathies; I27.21 Secondary pulmonary arterial hypertension; I34.0 Nonrheumatic mitral (valve) insufficiency; Z79.82 Long term (current) use of aspirin; Z99.81 Dependence on supplemental oxygen; Z79.899 Other long term (current) drug therapy
CPT/HCPCS: 36415; 71045; 80048; 83735; 83880; 84484; 85025; 85610; 93005; 93306; 97162; 97165; 97802; 99285; Q9957; A4216; J1940